=== PATIENT | male | born 1965 | race Caucasian/White ===

== ENCOUNTER 2020-10-24 11:39 | Emergency (ER) | payer BC, SELFPAY ==
[2020-10-24 11:47] VITALS: BP 155/105; PULSE 70; RESP 18; TEMP 36.6; O2SAT 96; BMI 37.5
[2020-10-24 12:06] VITALS: BP 159/98; PULSE 70; RESP 18; O2SAT 98
--- NOTE | 2020-10-24 12:12 | XRR_ITS ---
PROCEDURE INFORMATION: Exam: XR Pelvis Exam date and time: 10/24/2020 12:12 PM Age: 54 years old Clinical indication: Pelvic pain; Additional info: Evaluate for pain TECHNIQUE: Imaging protocol: XR pelvis. Views: 1 or 2 view. COMPARISON: No relevant prior studies available. FINDINGS: Bones/joints: Unremarkable. No acute fracture. Soft tissues: Unremarkable. XR/XR pelvis 1-2V* [id number] IMPRESSION: No acute findings.
--- NOTE | 2020-10-24 12:12 | XRR_ITS ---
PROCEDURE INFORMATION: Exam: XR Lumbosacral Spine Exam date and time: 10/24/2020 12:12 PM Age: 54 years old Clinical indication: Low back pain; Additional info: Evaluate for pathologies TECHNIQUE: Imaging protocol: XR of the lumbosacral spine. Views: 2 or 3 views. COMPARISON: No relevant prior studies available. FINDINGS: Bones/joints: No acute fracture. Normal alignment. Normal disc height. Soft tissues: Unremarkable. XR/XR lumbar spine 2-3V* [id number] IMPRESSION: No acute findings.
--- NOTE | 2020-10-24 12:12 | XRR_ITS ---
PROCEDURE INFORMATION: Exam: XR Left Femur Exam date and time: 10/24/2020 12:12 PM Age: 54 years old Clinical indication: Pain; Thigh; Left; Additional info: Evaluate for pain TECHNIQUE: Imaging protocol: XR Left femur. Views: 2 views. COMPARISON: No relevant prior studies available. FINDINGS: Bones/joints: Unremarkable. No acute fracture. Soft tissues: Unremarkable. XR/XR femur LT min 2V* [id number] IMPRESSION: No acute findings.
--- NOTE | 2020-10-24 12:15 | ED_ITS ---
HPI - General Adult General: Chief complaint: Back Pain/Injury Stated complaint: SEVERE LOWER BACK PAIN Time Seen by Provider: 10/24/20 11:54 History of Present Illness: HPI narrative: CC: Back pain HPI: [54]yo patient w/ hx of chronic L sided lumbar back pain presenting to the ED with acutely worsening chronic pain x 1 day. Pain started when patient woke up this morning that has been improving this morning. Patient first noticed the pain after he was weed eating 2 months ago. He requests for XRays so that he can follow up with his chiropracter on Sunday. Patient denied taking any medicine. Today, patients denies trauma to the back, fever/chill/IVDU, LE weakness, saddle anesthesia/bowel incontinence/bladder incontinence, or hx of recent weight loss or cancer. In addition, he does not have a history of kidney stone or urinary symptoms/hx of UTI. Onset: chronic, acutely worsening symptoms x1 day Duration: 60 days Location: Back pain with radiation to the L leg Severity: moderate Review of Systems Narrative: Constitutional: No fever, no chills. HEENT: No vision changes CV: No chest pain, no palpitations PULM: No cough, no dyspnea. GI: No abdominal pain, no N/V/D. : No dysuria MSKEL: No edema SKIN: No new rashes, no lesions. NEURO: No headache, no focal weakness. HEME: No visible bruises PSYCH: Normal mood BACK: L-sided lumbar paraspinal pain radiating to the L leg PFS ED PFSH: Medical History (Updated 10/24/20 @ 12:14 by Aurora Padgett MD) Depression Essential (primary) hypertension Surgical History Status post open reduction and internal fixation (ORIF) of fracture Right leg knee to ankle Family History Other Brain aneurysm Cancer Social History Smoking and tobacco status: former smoker Second hand smoke exposure: No Smoking risk assessment/counseling performed?: No Alcohol intake: never Desire information about alcohol rehabilitation?: No Counseling given: No Desire information about substance/drug rehabilitation?: No Counseling given: No Caregiver/support person: No Lives independently: Yes Household members: other Housing: House Marital status: Number of children: 0 Current occupational status: employed History of recent travel: No Current gender identity: Male Physical Exam Narrative: EXAM NARRATIVE: Head: Atraumatic Eyes: PERRL, conjunctiva without injection ENT: Mucous membrane moist NECK: Supple without lymphadenopathy LUNGS: CTA CV: RRR ABDOMEN: Soft, nontender EXTREMITY: Normal ROM, 5/5 strength in hip/knee/ankle f/e bilaterally, sensation intact bilaterally in the LE. SKIN: No rash or erythema NEURO: Awake and alert. No focal motor deficits. PSYCH: Normal mood and affect. : No saddle anesthesia BACK: No midline tenderness, no step off, obvious deformity, hip stable, L paraspinal lumbar tenderness with radiation to the L side Course Vital Signs: Vital signs: Vital Signs Temperature 97.8 F 10/24/20 11:47 Pulse Rate 60 10/24/20 14:09 Respiratory Rate 18 10/24/20 14:09 Blood Pressure 150/74 10/24/20 14:09 Pulse Oximetry 97 10/24/20 14:09 MDM - General Adult MDM Narrative: Medical decision making narrative: [54]yo patient w/ hx of chronic lumbar pain with radiation to the [L] side presenting to the ED with acute worsening lumbar pain x 1 day on waking up, now has mild pain with ambulation. Neurological exam including LE exam intact. The Patient is able to bear weight on legs and ambulate with moderate pain. No red flags of IVDU/fever, hx or symptomatology of cancer w/ mets to the bones, neurological findings or bowel or bladder incontinence, or acute trauma/fracture of the vertebral columns. XR pelvis, lumbar back, and L femur per request of patient [12:30] On reassessment, no signs of acute fracture. Patient declined pain medicine and Orthopedics followup. Patient elects to see his chiropracter on Sunday. At the present time, I have discussed the importance for the patient to follow up with orthopedics KEO and the patient agrees. No suspicion for acute cord compression at this time. Disposition: Discharge. Patient is given SRP for any focal weakness, intractable pain, fever/chill, any signs of bowel or bladder incontinence. Patient is instructed to follow up with the orthopedics provider. I have provided an additional orthopedic referral for the patient should the patient need it. Patient verbalizes understanding and plans to do so in the next fews. Imaging Data^: Other Imaging: Radiologist's impression: [address] [place], [place] [address]GDlp ReportSigned Patient: Theo Yousif #: [id number]: 1965Acct#:[id number]/Sex: 54 / MADM Date: 10/24/20Loc: ERRoom/Bed:Attending Dr: Ordering Provider/Ordering MD: Aurora Padgett MD Date of Service: 10/24/20 Procedure(s): XR pelvis 1-2V* [id number] Accession Number(s): [id number] Report Number: [id number] PROCEDURE INFORMATION: Exam: XR Pelvis Exam date and time: 10/24/2020 12:12 PM Age: 54 years old Clinical indication: Pelvic pain; Additional info: Evaluate for pain TECHNIQUE: Imaging protocol: XR pelvis. Views: 1 or 2 view. COMPARISON: No relevant prior studies available. FINDINGS: Bones/joints: Unremarkable. No acute fracture. Soft tissues: Unremarkable. XR/XR pelvis 1-2V* [id number] IMPRESSION: No acute findings. Dictated By:Mushtaq Henning MDSigned By:Mushtaq Henning MDSigned Date/Time:10/24/20 1353DD/ [address] [place], [place] [address]CJko ReportSigned Patient: Theo Yousif #: [id number]: 1965Acct#:[id number]/Sex: 54 / MADM Date: 10/24/20Loc: ERRoom/Bed:Attending Dr: Ordering Provider/Ordering MD: Aurora Padgett MD Date of Service: 10/24/20 Procedure(s): XR lumbar spine 2-3V* [id number] Accession Number(s): [id number] Report Number: [id number] PROCEDURE INFORMATION: Exam: XR Lumbosacral Spine Exam date and time: 10/24/2020 12:12 PM Age: 54 years old Clinical indication: Low back pain; Additional info: Evaluate for pathologies TECHNIQUE: Imaging protocol: XR of the lumbosacral spine. Views: 2 or 3 views. COMPARISON: No relevant prior studies available. FINDINGS: Bones/joints: No acute fracture. Normal alignment. Normal disc height. Soft tissues: Unremarkable. XR/XR lumbar spine 2-3V* [id number] IMPRESSION: No acute findings. Dictated By:Mushtaq Henning MDSigned By:Mushtaq Henningigned Date/Time:10/24/20 1353DD/ [address] [address]UArq ReportSigned Patient: Theo Yousif #: [id number]: 1965Acct#:[id number]/Sex: 54 / MADM Date: 10/24/20Loc: ERRoom/Bed:Attending Dr: Ordering Provider/Ordering MD: Aurora Padgett MD Date of Service: 10/24/20 Procedure(s): XR femur LT min 2V* [id number] Accession Number(s): [id number] Report Number: [id number] PROCEDURE INFORMATION: Exam: XR Left Femur Exam date and time: 10/24/2020 12:12 PM Age: 54 years old Clinical indication: Pain; Thigh; Left; Additional info: Evaluate for pain TECHNIQUE: Imaging protocol: XR Left femur. Views: 2 views. COMPARISON: No relevant prior studies available. FINDINGS: Bones/joints: Unremarkable. No acute fracture. Soft tissues: Unremarkable. XR/XR femur LT min 2V* [id number] IMPRESSION: No acute findings. Dictated By:Mushtaq Henning MDSigned By:Mushtaq Henningigned Date/Time:10/24/20 1353DD/ 1353 Discharge Plan Discharge Patient Disposition: Home Clinical Impression: Lumbago Condition: Stable Prescriptions: No Action aspirin 325 mg tablet 325 mg PO BID PRNRF: 0 fenofibrate nanocrystallized [Tricor] 145 mg tablet 145 mg PO DAILY Qty: 30 RF: 5 amlodipine 10 mg tablet 10 mg PO QDAY Qty: 30 RF: 5 Discharge Orders: Discharge ED (Routine); Ordered 10/24/20 Ordered By: Aurora Padgett Referrals: Zhane Butts FNP-C [Primary Care Provider] - Discharge Diet: Advance as tolerated Discharge Activity: Resume usual activity Patient Instructions: Back Pain (ED) Activity Restrictions/Additional Instructions: Please come back to the emergency room if you have any worsening pain, weakness in the legs, numbness in the legs, or difficulty controlling your bladder or hong wel. Coding Level of Care Code ED Project Management Specialist for [place]
[2020-10-24 14:09] VITALS: BP 150/74; PULSE 60; RESP 18; O2SAT 97
== END 2020-10-24 14:09 | disposition home or self-care (01) ==
PROVIDERS: Emergency Provider Emergency Medicine; PCP Nurse Practitioner Family
DX: M54.5 Low back pain (principal); I10 Essential (primary) hypertension; Z87.891 Personal history of nicotine dependence
CPT/HCPCS: 72100; 72170; 73552; 99282

== ENCOUNTER → 2020-11-16 13:16 | Outpatient (BNVA) | payer BC, SELFPAY | PROVIDERS: PCP Nurse Practitioner Family; Visit Provider Nurse Practitioner Family | DX: I10 Essential (primary) hypertension (principal); E78.2 Mixed hyperlipidemia; M79.89 Other specified soft tissue disorders; H53.9 Unspecified visual disturbance | CPT/HCPCS: 80053; 80061; 84443; 85025 ==

== ENCOUNTER → 2020-12-13 10:39 | Outpatient (BNVA) | payer BC, SELFPAY | PROVIDERS: PCP Nurse Practitioner Family | DX: Z20.822 Contact with and (suspected) exposure to COVID-19 (principal) | CPT/HCPCS: 87635 ==

== ENCOUNTER → 2021-09-13 09:38 | Outpatient (BNVA) | payer BC, SELFPAY | PROVIDERS: PCP Nurse Practitioner Family; Visit Provider Nurse Practitioner Family | DX: I10 Essential (primary) hypertension (principal); E78.2 Mixed hyperlipidemia | CPT/HCPCS: 80053; 80061; 84443; 85025 ==

== ENCOUNTER → 2022-06-14 15:37 | Outpatient (BNVA) | payer BC, MEDICAID, SELFPAY | PROVIDERS: Visit Provider Nurse Practitioner Family | DX: R30.0 Dysuria (principal); Z12.5 Encounter for screening for malignant neoplasm of prostate; E78.2 Mixed hyperlipidemia; I10 Essential (primary) hypertension; F31.9 Bipolar disorder, unspecified; F20.9 Schizophrenia, unspecified; E66.9 Obesity, unspecified | CPT/HCPCS: 80053; 80061; 80307; 84443; G0103 ==

== ENCOUNTER 2023-01-06 16:54 | Emergency (ER) | payer BC, MEDICAID, SELFPAY ==
[2023-01-06 16:55] VITALS: BP 206/132; PULSE 92; RESP 18; TEMP 37; O2SAT 95; BMI 30.4
--- NOTE | 2023-01-06 17:35 | ED.C_ITS ---
HPI - Psych General: Chief Complaint: Psychiatric Symptoms Stated Complaint: PSYCH EVAL Time Seen by Provider: 01/06/23 17:11 Source: patient Mode of arrival: EMS History of Present Illness: 57-year-old male presents to the emergency room. [place] there was some confrontation between him about his living conditions he is living in a camper on the property they do not want him in the house he wanted to get in the house to take a bath. Law enforcement was called. He is having some hallucinations he said he called the FBI. He also made comments about killing himself will stay EMS and see the affidavit and to myself as well when I did his history. Denies making any attempts to harm himself he states he is going to try to get someone else to kill him, alludes to having served in the . MD complaint: suicidal ideation Context: significant life stressor Associated psychiatric symptoms: depression, suicidal ideation and delusions If self harm: admits thoughts of self harm Review of Systems Const: Denies: fever(s) or chills Card: Denies: chest pain Resp: Denies: dyspnea GI: Denies: abdominal pain : Denies: dysuria, urinary frequency or urinary urgency Musc: Denies: neck pain or back pain Skin/Breast: Denies: rash PFSH ED PFSH: Medical History Bipolar disorder Depression Essential (primary) hypertension Schizophrenia Surgical History Status post open reduction and internal fixation (ORIF) of fracture Right leg knee to ankle Family History Other Brain aneurysm Cancer Social History Smoking and tobacco/nicotine status: former use of tobacco/nicotine Second hand smoke exposure: No Alcohol intake: never Substance/Drug Use: never Caregiver/support person: No Lives independently: Yes Household members: other Housing: House Marital status: Number of children: 0 Current occupational status: employed Do you think of yourself as: Straight/Heterosexual Current gender identity: Male Physical Exam Const: COMMON NORMALS: no acute distress GENERAL APPEARANCE: cooperative and comfortable ORIENTATION/CONSCIOUSNESS: Yes awake, Yes oriented to person, Yes oriented to place and Yes oriented to time HENMT: COMMON NORMALS: normocephalic, atraumatic and hearing grossly normal bilaterally HEAD & SCALP: normocephalic and atraumatic Resp: COMMON NORMALS: normal respiratory effort, No retractions, No use of accessory muscles and clear to auscultation bilaterally AUSCULTATION: clear to auscultation bilaterally Cardio: COMMON NORMALS: regular rate, regular rhythm and No murmurs present (Cardio) RATE: regular rate RHYTHM: regular rhythm GI: COMMON NORMALS: Soft to palpation and No hepatosplenomegaly present AUSCULTATION: Yes normoactive bowel sounds PALPATION: Yes Soft to palpation, No Tenderness to palpation present (GI), No Guarding due to palpation present (GI) and Yes No hepatosplenomegaly present Extremity: COMMON NORMALS: normal to inspection, capillary refill normal, no clubbing, cyanosis or edema, no calf tenderness and no pedal edema Neuro: SENSORIUM/ORIENTATION: Yes oriented to person, Yes oriented to place and Yes oriented to time Skin: COMMON NORMALS: no rashes or lesions noted GENERAL SKIN EXAM: no rashes or lesions noted Course Vital Signs: Vital signs: Vital Signs Temperature 98.6 F 01/06/23 16:55 Pulse Rate 63 01/07/23 03:39 Respiratory Rate 16 01/07/23 03:39 Blood Pressure 152/100 01/07/23 03:39 Pulse Oximetry 98 01/07/23 03:39 Oxygen Delivery Me thod Room Air 01/06/23 21:51 MDM - Psych Medical Decision Making Patient 96 4-hour hold with acute psychosis delusions hallucinations and suicidal ideation. They have excepted at [facility] will transfer via ambulance Medical Records I reviewed the patient's medical records. Lab Data I reviewed the patient's lab results. 01/06/23 17:35 01/06/23 17:35 Laboratory Results WBC 7.66 10^3/uL (3.29-11.43) 01/06/23 17:35 RBC 5.25 10^6/uL (3.85-5.65) 01/06/23 17:35 Hgb 15.40 g/dL (11.27-16.99) 01/06/23 17:35 Hct 45.6 % (37-53) 01/06/23 17:35 MCV 86.9 fl (82-101) 01/06/23 17:35 MCH 29.3 pg (27-33) 01/06/23 17:35 MCHC 33.8 g/dL (30-55) 01/06/23 17:35 RDW 12.3 % (12.1-15.1) 01/06/23 17:35 Plt Count 207 10^3/cmm (157-399) 01/06/23 17:35 MPV 9.7 fL (7.4-10.4) 01/06/23 17:35 Neut % (Auto) 60.0 % 01/06/23 17:35 Lymph % (Auto) 30.7 % 01/06/23 17:35 [place] % (Auto) 7.8 % 01/06/23 17:35 Eos % (Auto) 0.5 % 01/06/23 17:35 Baso % (Auto) 0.7 % 01/06/23 17:35 Neut # (Auto) 4.60 10^3/uL (1.8-7.7) 01/06/23 17:35 Lymph # (Auto) 2.4 10^3/uL (0.8-4.8) 01/06/23 17:35 [place] # (Auto) 0.6 10^3/uL (0.2-0.9) 01/06/23 17:35 Eos # (Auto) 0.0 10^3/uL (0.0-0.8) 01/06/23 17:35 Baso # (Auto) 0.1 10^3/uL (0.0-0.1) 01/06/23 17:35 Nucleated RBC % (auto) 0 % 01/06/23 17:35 Nucleated RBCs # 0.0 /100WBC 01/06/23 17:35 Sodium 140 mmol/L (136-145) 01/06/23 17:35 Potassium 4.3 mmol/L (3.5-5.1) 01/06/23 17:35 Chloride 104 mmol/L (98-107) 01/06/23 17:35 Carbon Dioxide 24 mmol/L (22-29) 01/06/23 17:35 Anion Gap 16.3 (5-19) 01/06/23 17:35 BUN 14 mg/dL (6-20) 01/06/23 17:35 Creatinine 1.1 mg/dL (0.7-1.2) 01/06/23 17:35 GFR Calculation 69.5 mL/min (90-130) L 01/06/23 17:35 Glucose 103 mg/dL (65-115) 01/06/23 17:35 Calculated Osmolality 291 mOsm/kg (285-295) 01/06/23 17:35 Calcium 10.1 mg/dL (8.5-10.5) 01/06/23 17:35 Total Bilirubin 0.5 mg/dL (0.15-1.2) 01/06/23 17:35 AST 21 U/L (0-40) 01/06/23 17:35 ALT 20 U/L (0-41) 01/06/23 17:35 Alkaline Phosphatase 55 U/L (40-130) 01/06/23 17:35 Total Protein 7.6 g/dL (6.6-8.7) 01/06/23 17:35 Albumin 4.8 g/dL (3.5-5.2) 01/06/23 17:35 Globulin 2.8 g/dL (1.3-4.6) 01/06/23 17:35 Urine Color Yellow (Yellow) 01/06/23 17:42 Urine Appearance Clear (CLEAR) 01/06/23 17:42 Urine pH 5 (5-7) 01/06/23 17:42 Ur Specific [place] 1.020 (1.005-1.030) 01/06/23 17:42 Urine Protein 2+ (Negative) H 01/06/23 17:42 Urine Glucose (UA) Norm (Normal) 01/06/23 17:42 Urine Ketones 1+ (Negative) H 01/06/23 17:42 Urine Blood 2+ (Negative) H 01/06/23 17:42 Urine Nitrate Negative (Negative) 01/06/23 17:42 Urine Bilirubin Neg (Negative) 01/06/23 17:42 Urine Urobilinogen Neg mg/dL (Negative) 01/06/23 17:42 Ur Leukocyte Esterase Negative (Negative) 01/06/23 17:42 Urine RBC 0-4 /hpf (0-2) H 01/06/23 17:42 Urine WBC 0-4 /hpf (0-5) H 01/06/23 17:42 Ur Squamous Epith Cells 0-4 /hpf (0-5) H 01/06/23 17:42 Amorphous Sediment 2+ /hpf 01/06/23 17:42 Urine Bacteria None /hpf (NONE) 01/06/23 17:42 Hyaline Casts 5-10 /lpf H 01/06/23 17:42 Fine Granular Casts 0-4 /lpf H 01/06/23 17:42 Urine Mucus 2+ /hpf 01/06/23 17:42 Salicylates < 0.3 mg/dL (3-10) L 01/06/23 17:35 Urine Opiates Screen Negative ng/mL (Negative) 01/06/23 17:42 Acetaminophen < 5.0 ug/mL (10-30) L 01/06/23 17:35 Ur Barbiturates Screen Negative ng/mL (Negative) 01/06/23 17:42 Ur Phencyclidine Scrn Negative ng/mL (Negative) 01/06/23 17:42 Ur Amphetamines Screen Negative ng/mL (Negative) 01/06/23 17:42 U Benzodiazepines Scrn Negative ng/mL (Negative) 01/06/23 17:42 Urine Cocaine Screen Negative ng/mL (Negative) 01/06/23 17:42 U Marijuana (THC) Screen Positive ng/mL (Negative) H 01/06/23 17:42 Ethyl Alcohol < 10 mg/dL (0-10) 01/06/23 17:35 SARS-CoV-2 Ag (Rapid) negative (Negative) 01/06/23 18:55 No radiology studies performed this visit Discharge Plan Discharge Patient Disposition: Xfer Psychiatric Hosp Clinical Impression: Suicidal ideation, Acute psychosis Condition: Stable Prescriptions: No Action aspirin 325 mg tablet 325 mg PO BID PRN (Reason: Pain) fenofibrate nanocrystallized [Tricor] 145 mg tablet 145 mg PO DAILY Qty: 30 5RF losartan 50 mg tablet 50 mg PO BID 30 Days Qty: 60 5RF clonidine HCl 0.1 mg tablet See Rx Instructions .ROUTE .COMPLEX Qty: 90 0RF Dose Instruction: TAKE ONE TABLET BY MOUTH THREE TIMES DAILY NEEDED FOR HYPERTENSIVE EMERGENCY Rx Instructions: TAKE ONE TABLET BY MOUTH THREE TIMES DAILY NEEDED FOR HYPERTENSIVE EMERGENCY Coding Level of Care Code ED Transformation Specialist for Chg Fwd
[2023-01-06 17:49] LABS: Basophils # 0.1 10^3/uL (0.0-0.1); Basophils % 0.7 %; Eosinophils % 0.5 %; Hematocrit 45.6 % (37-53); Lymphocytes # 2.4 10^3/uL (0.8-4.8); Lymphocytes % 30.7 %; Mean Corpuscular HGB Conc 33.8 g/dL (30-55); Mean Corpuscular Hemoglobin 29.3 pg (27-33); Mean Corpuscular Volume 86.9 fl (82-101); Mean Platelet Volume 9.7 fL (7.4-10.4); Monocytes # 0.6 10^3/uL (0.2-0.9); Monocytes % 7.8 %; Nucleated Red Blood Cells % 0 %; Platelet Count 207 10^3/cmm (157-399); Red Blood Count 5.25 10^6/uL (3.85-5.65); Red Cell Distribution Width 12.3 % (12.1-15.1); White Blood Count 7.66 10^3/uL (3.29-11.43)
[2023-01-06 18:07] LABS: Alanine Aminotransferase 20 U/L (0-41); Albumin Level 4.8 g/dL (3.5-5.2); Alkaline Phosphatase 55 U/L (40-130); Anion Gap 16.3 (5-19); Aspartate Amino Transferase 21 U/L (0-40); Blood Urea Nitrogen 14 mg/dL (6-20); Calcium 10.1 mg/dL (8.5-10.5); Carbon Dioxide 24 mmol/L (22-29); Chloride 104 mmol/L (98-107); Globulin 2.8 g/dL (1.3-4.6); Glomerular Filtration Rate 69.5 mL/min (90-130); Glucose 103 mg/dL (65-115); Osmolality Calculated 291 mOsm/kg (285-295); Potassium 4.3 mmol/L (3.5-5.1); Sodium 140 mmol/L (136-145); Total Bilirubin 0.5 mg/dL (0.15-1.2); Total Protein 7.6 g/dL (6.6-8.7)
[2023-01-06 18:08] LABS: Acetaminophen < 5.0 ug/mL (10-30); Alcohol Level < 10 mg/dL (0-10); Salicylate < 0.3 mg/dL (3-10)
[2023-01-06 18:22] LABS: Amphetamines Screen Urine Negative (Negative); Barbiturates Screen Urine Negative (Negative); Benzodiazepines Screen Urine Negative (Negative); Cocaine Screen Urine Negative (Negative); Opiate Screen Urine Negative (Negative); PCP Screen Urine Negative (Negative); THC Screen Urine Positive (Negative)
[2023-01-06 18:32] LABS: Urine Appearance Clear (CLEAR); Urine Color Yellow (Yellow)
[2023-01-06 18:33] LABS: Add Urine Culture? No; Add Urine Microscopic? YES; Amorphous Sediment Urine 2+ /hpf; Bilirubin Urine Neg (Negative); Blood Urine 2+ (Negative); Fine Granular Casts Urine 0-4 /lpf; Glucose Urine UA Norm (Normal); Ketones Urine 1+ (Negative); Leukocyte Esterase Urine Negative (Negative); Mucus Urine 2+ /hpf; Nitrate Urine Negative (Negative); Protein Urine 2+ (Negative); RBC Urine 0-4 /hpf (0-2); Squamous Epithelial Cell Urine 0-4 /hpf (0-5); Urobilinogen Urine Neg (Negative); WBC Urine 0-4 /hpf (0-5); pH Urine 5 (5-7)
[2023-01-06 19:29] LABS: SARS Covid-2 Antigen negative (Negative)
[2023-01-06 21:51] VITALS: BP 192/106; PULSE 57; RESP 16; O2SAT 98
[2023-01-07 03:39] VITALS: BP 152/100; PULSE 63; RESP 16; O2SAT 98
--- NOTE | 2023-01-07 06:51 | PC.NURSE ---
report rec'd from FELIZ Veliz
[2023-01-07 08:35] VITALS: BP 148/85
[2023-01-07] MEDS: losartan 50 mg Tablet PO (08:35)
[2023-01-07] MEDS: nicotine 2 mg Gum 4 MG BUCCAL (12:05)
== END 2023-01-07 13:54 ==
PROVIDERS: Emergency Provider Family Medicine
DX: R45.851 Suicidal ideations (principal); F23 Brief psychotic disorder; Z11.52 Encounter for screening for COVID-19; Z87.891 Personal history of nicotine dependence; I10 Essential (primary) hypertension
CPT/HCPCS: 36415; 80053; 80306; 80307; 81001; 85025; 87426; 99283

== ENCOUNTER → 2023-04-16 14:51 | Outpatient (BNVA) | payer BC, MEDICAID, SELFPAY | PROVIDERS: PCP Family Medicine; Visit Provider Family Medicine | DX: R30.0 Dysuria (principal); I10 Essential (primary) hypertension; N41.1 Chronic prostatitis; Z79.899 Other long term (current) drug therapy | CPT/HCPCS: 80053; 80061; 81000; 82043; 85025 ==

== ENCOUNTER 2023-08-06 13:25 | Emergency (ER) | payer BC, MEDICAID, SELFPAY ==
[2023-08-06] VITALS (9 sets, daily range): BP systolic 169–183; BP diastolic 81–122; PULSE 55–64; RESP 18; TEMP 36.8; O2SAT 98–99
--- NOTE | 2023-08-06 13:27 | XR_ITS ---
WS: [id number] XR chest 1V portable [id number] REASON FOR EXAM: chest pain FINDINGS: Mild tortuosity of the thoracic aorta. Heart size at the upper limits of normal. Calcified granulomatous disease in both hemithoraces. No acute pulmonary parenchymal or pleural abnormality noted. Bony thorax is intact without significant focal abnormality. XR/XR chest 1V portable [id number] IMPRESSION: No acute chest abnormality.
--- NOTE | 2023-08-06 13:36 | ECG_ITS ---
[facility] Test Date: 2023-08-06 Pat Name: Abdirahman Yousif Department: Room: Gender: Male Operations Asst: : 1965 Requested By: Tobias Brooks Order Number: [id number] Luis MD: Aba Harrell M.D. Measurements Intervals [place] Rate: 60 P: 51 WA: 162 QRS: 42 QRSD: 92 T: 47 QT: 391 QTc: 391 Interpretive Statements SINUS RHYTHM NONSPECIFIC ST ELEVATION [0.05+ mV ST ELEVATION] No previous ECG available for comparison Electronically Signed On 08-06-2023 14:31:19 CDT by Aba Harrell M.D. [email or web address]
--- NOTE | 2023-08-06 13:51 | ED_ITS ---
HPI - Chest Pain 2 General: Chief Complaint: Arrhythmia/Palpitations Stated Complaint: chest pain Time Seen by Provider: 08/06/23 13:27 Source: patient Mode of arrival: ambulatory History of Present Illness: 57-year-old male presents to the emergen cy room with complaints of not feeling well. He states he is having 1 of those attacks he says he gets hand and foot cramps he feels very short of breath he gets numbness and tingling in his face. He also gets diaphoretic with this. It is resolved by the time he arrived here. He was at the clinic and he states that his heart rate was high and he was directed here by ambulance. No documentation of an EKG. When he arrived here his heart rate is actually bradycardic in the 60s. No chest pain or shortness of breath at this time although patient states he is very cold part of his because his T-shirt is completely soaked. He has no known history of coronary artery disease MD complaint: chest pain Onset (ago): minute(s) Timing of current episode: episodic Onset: during rest Relieving factors: nothing Exacerbating factors: nothing Associated symptoms: Deny abdominal pain, diaphoresis, dyspnea, fever(s), leg edema, nausea, palpitations, sense of impending doom, syncope or vomiting Treatment prior to arrival: none Review of Systems 2 Const: Denies: fever(s), chills or diaphoresis Card: Denies: chest pain, palpitations or syncope Resp: Denies: dyspnea GI: Denies: abdominal pain, nausea or vomiting : Denies: dysuria, urinary frequency or urinary urgency Musc: Denies: neck pain or back pain Skin/Breast: Denies: rash PFSH ED 2 PFSH: Medical History Prostate cancer screening Bipolar disorder Schizophrenia Depression Essential (primary) hypertension Surgical History Status post open reduction and internal fixation (ORIF) of fracture Right leg knee to ankle Family History Other Brain aneurysm Cancer Social History Smoking and tobacco/nicotine status: former use of tobacco/nicotine Second hand smoke exposure: No Alcohol intake: never Substance/Drug Use: never Caregiver/support person: No Lives independently: Yes Household members: other Housing: House Marital status: Number of children: 0 Current occupational status: employed Do you think of yourself as: Straight/Heterosexual Current gender identity: Male Physical Exam 2 Const: COMMON NORMALS: no acute distress GENERAL APPEARANCE: cooperative and comfortable ORIENTATION/CONSCIOUSNESS: Yes awake, Yes oriented to person, Yes oriented to place and Yes oriented to time HENMT: COMMON NORMALS: normocephalic, atraumatic and hearing grossly normal bilaterally HEAD & SCALP: normocephalic and atraumatic Resp: COMMON NORMALS: normal respiratory effort, No retractions, No use of accessory muscles and clear to auscultation bilaterally AUSCULTATION: clear to auscultation bilaterally Cardio: COMMON NORMALS: regular rate, regular rhythm and No murmurs present (Cardio) RATE: regular rate RHYTHM: regular rhythm GI: COMMON NORMALS: Soft to palpation and No hepatosplenomegaly present A USCULTATION: Yes normoactive bowel sounds PALPATION: Yes Soft to palpation, No Tenderness to palpation present (GI), No Guarding due to palpation present (GI) and Yes No hepatosplenomegaly present Extremity: COMMON NORMALS: normal to inspection, capillary refill normal, no clubbing, cyanosis or edema, no calf tenderness and no pedal edema Neuro: SENSORIUM/ORIENTATION: Yes oriented to person, Yes oriented to place and Yes oriented to time Skin: COMMON NORMALS: no rashes or lesions noted GENERAL SKIN EXAM: no rashes or lesions noted Course 2 Vital Signs: Vital signs: Vital Signs Temperature 98.2 F 08/06/23 13:59 Pulse Rate 62 08/06/23 18:24 Respiratory Rate 18 08/06/23 13:59 Blood Pressure 181/89 08/06/23 18:00 Pulse Oximetry 99 08/06/23 18:24 Oxygen Delivery Me thod Room Air 08/06/23 18:00 MDM - Chest Pain Medical Decision Making No arrhythmias here. Troponins trending negative. Blood pressure is mildly elevated. Continue his current medications. Will set him up for a 48-hour Holter monitor Lexiscan sestamibi stress test and follow-up with his primary care doctor to reevaluate blood pressure for possible adjustments. Medical Records I reviewed the patient's medical records. Lab Data I reviewed the patient's lab results. 08/06/23 14:08 08/06/23 14:08 Radiology Impressions Chest X-Ray 08/06/23 13:27 IMPRESSION: No acute chest abnormality. Laboratory Results WBC 5.91 10^3/uL (3.29-11.43) 08/06/23 14:08 RBC 5.32 10^6/uL (3.85-5.65) 08/06/23 14:08 Hgb 15.80 g/dL (11.27-16.99) 08/06/23 14:08 Hct 46.7 % (37-53) 08/06/23 14:08 MCV 87.8 fl (82-101) 08/06/23 14:08 MCH 29.7 pg (27-33) 08/06/23 14:08 MCHC 33.8 g/dL (30-55) 08/06/23 14:08 RDW 12.8 % (12.1-15.1) 08/06/23 14:08 Plt Count 203 10^3/cmm (157-399) 08/06/23 14:08 MPV 10.1 fL (7.4-10.4) 08/06/23 14:08 Neut % (Auto) 69.9 % 08/06/23 14:08 Lymph % (Auto) 22.0 % 08/06/23 14:08 [place] % (Auto) 6.6 % 08/06/23 14:08 Eos % (Auto) 0.3 % 08/06/23 14:08 Baso % (Auto) 0.7 % 08/06/23 14:08 Neut # (Auto) 4.13 10^3/uL (1.8-7.7) 08/06/23 14:08 Lymph # (Auto) 1.3 10^3/uL (0.8-4.8) 08/06/23 14:08 [place] # (Auto) 0.4 10^3/uL (0.2-0.9) 08/06/23 14:08 Eos # (Auto) 0.0 10^3/uL (0.0-0.8) 08/06/23 14:08 Baso # (Auto) 0.0 10^3/uL (0.0-0.1) 08/06/23 14:08 Nucleated RBC % (auto) 0 % 08/06/23 14:08 Nucleated RBCs # 0.0 /100WBC 08/06/23 14:08 Sodium 136 mmol/L (136-145) 08/06/23 14:08 Potassium 4.8 mmol/L (3.5-5.1) 08/06/23 14:08 Chloride 100 mmol/L (98-107) 08/06/23 14:08 Carbon Dioxide 24 mmol/L (22-29) 08/06/23 14:08 Anion Gap 16.8 (5-19) 08/06/23 14:08 BUN 17 mg/dL (6-20) 08/06/23 14:08 Creatinine 1.1 mg/dL (0.7-1.2) 08/06/23 14:08 GFR Calculation 69.5 mL/min (90-130) L 08/06/23 14:08 Glucose 121 mg/dL (65-115) H 08/06/23 14:08 Calculated Osmolality 285 mOsm/kg (285-295) 08/06/23 14:08 Calcium 9.7 mg/dL (8.5-10.5) 08/06/23 14:08 Total Bilirubin 0.2 mg/dL (0.15-1.2) 08/06/23 14:08 AST 21 U/L (0-40) 08/06/23 14:08 ALT 26 U/L (0-41) 08/06/23 14:08 Alkaline Phosphatase 50 U/L (40-130) 08/06/23 14:08 Troponin T Baseline 7 ng/L (0-15) 08/06/23 14:08 Troponin T 120 Minute 6.88 ng/L (0-15) 08/06/23 16:41 Delta Troponin T -0.12 ABS# (0-10) L 08/06/23 16:41 Total Protein 8.3 g/dL (6.6-8.7) 08/06/23 14:08 Albumin 5.1 g/dL (3.5-5.2) 08/06/23 14:08 Globulin 3.2 g/dL (1.3-4.6) 08/06/23 14:08 All radiology interpretation(s) finalized by discharge Discharge Plan Discharge Patient Disposition: Home Clinical Impression: Palpitations, Essential (primary) hypertension Condition: Stable Prescriptions: New amlodipine 5 mg tablet 5 mg PO DAILY Qty: 30 0RF No Action aspirin 81 mg tablet,delayed release (DR/EC) 81 mg PO DAILY Qty: 100 3RF clonidine HCl 0.1 mg tablet See Rx Instructions .ROUTE .COMPLEX Qty: 90 1RF Dose Instruction: TAKE ONE TABLET BY MOUTH THREE TIMES DAILY NEEDED FOR HYPERTENSIVE EMERGENCY Rx Instructions: TAKE ONE TABLET BY MOUTH THREE TIMES DAILY NEEDED FOR HYPERTENSIVE EMERGENCY fenofibrate nanocrystallized [Tricor] 145 mg tablet 145 mg PO DAILY Qty: 30 5RF losartan 50 mg tablet 50 mg PO BID 30 Days Qty: 60 5RF Discharge Orders: Discharge ED (Routine); Ordered 08/06/23 Ordered By: Tobias Quiroga Referrals: Simona Benavides DO [Primary Care Provider] - Discharge Diet: Usual diet Discharge Activity: Resume usual activity Patient Instructions: Opioid Safety, Pain Management Activity Restrictions/Additional Instructions: Thank you for choosing [facility] for your healthcare needs today. It is very important that you follow up as instructed or that you return to the Emergency Department should you have concerns or if your condition changes or worsens in any way. You were seen today after an episode of rapid heart rate. Your heart rate was normal and at times slightly slow in the emergency room but your blood pressure was significantly elevated. Will set you up for a 48-hour Holter monitor and a outpatient stress test. You should follow-up with your primary care doctor within the week to reevaluate your blood pressure. Coding Level of Care Code ED Senior Designer for [place] Russell
[2023-08-06] MEDS: aspirin 81 mg Chew Tablet 324 MG PO (14:13)
[2023-08-06 14:25] LABS: Basophils % 0.7 %; Eosinophils % 0.3 %; Hematocrit 46.7 % (37-53); Lymphocytes # 1.3 10^3/uL (0.8-4.8); Mean Corpuscular HGB Conc 33.8 g/dL (30-55); Mean Corpuscular Hemoglobin 29.7 pg (27-33); Mean Corpuscular Volume 87.8 fl (82-101); Mean Platelet Volume 10.1 fL (7.4-10.4); Monocytes # 0.4 10^3/uL (0.2-0.9); Monocytes % 6.6 %; Neutrophils # 4.13 10^3/uL (1.8-7.7); Neutrophils % 69.9 %; Nucleated Red Blood Cells % 0 %; Platelet Count 203 10^3/cmm (157-399); Red Blood Count 5.32 10^6/uL (3.85-5.65); Red Cell Distribution Width 12.8 % (12.1-15.1); White Blood Count 5.91 10^3/uL (3.29-11.43)
[2023-08-06 14:39] LABS: Alanine Aminotransferase 26 U/L (0-41); Albumin Level 5.1 g/dL (3.5-5.2); Alkaline Phosphatase 50 U/L (40-130); Anion Gap 16.8 (5-19); Aspartate Amino Transferase 21 U/L (0-40); Blood Urea Nitrogen 17 mg/dL (6-20); Calcium 9.7 mg/dL (8.5-10.5); Carbon Dioxide 24 mmol/L (22-29); Chloride 100 mmol/L (98-107); Globulin 3.2 g/dL (1.3-4.6); Glomerular Filtration Rate 69.5 mL/min (90-130); Glucose 121 mg/dL (65-115); Osmolality Calculated 285 mOsm/kg (285-295); Potassium 4.8 mmol/L (3.5-5.1); Sodium 136 mmol/L (136-145); Total Bilirubin 0.2 mg/dL (0.15-1.2); Total Protein 8.3 g/dL (6.6-8.7)
[2023-08-06 14:41] LABS: Troponin(5th) Baseline 7 ng/L (0-15)
[2023-08-06] MEDS: hyDRALAzine 20 mg/mL INJ 1 mL 10 MG IVP (15:39)
--- NOTE | 2023-08-06 16:32 | ECG_ITS ---
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 Measurements Intervals [place] Rate: 58 P: 32 UT: 164 QRS: 43 QRSD: 89 T: 44 QT: 389 QTc: 384 Interpretive Statements SINUS BRADYCARDIA Compared to ECG 08/06/2023 13:36:52 Sinus rhythm no longer present ST (T wave) deviation no longer present Electronically Signed On 08-07-2023 7:32:38 CDT by Javi Robison M.D. [id number]
[2023-08-06 17:20] LABS: Troponin 5 2HR 6.88 ng/L (0-15)
[2023-08-06 17:23] LABS: Troponin 5 2HR Delta -0.12 ABS# (0-10)
--- NOTE | 2023-08-08 08:32 | DCPLANNER ---
Message sent to cardiology for 48 hour holter monitor.
== END 2023-08-06 18:25 | disposition home or self-care (01) ==
PROVIDERS: Emergency Provider Family Medicine; PCP Family Medicine
DX: R00.2 Palpitations (principal); I10 Essential (primary) hypertension; Z79.82 Long term (current) use of aspirin; Z87.891 Personal history of nicotine dependence
CPT/HCPCS: 36415; 71045; 80053; 84484; 85025; 93005; 96374; 99285; J0360

== ENCOUNTER → 2023-08-24 14:21 | Outpatient (BNVA) | payer BC, MEDICAID, SELFPAY | PROVIDERS: PCP Family Medicine; Visit Provider Family Medicine | DX: I10 Essential (primary) hypertension (principal) | CPT/HCPCS: 84443 ==

== ENCOUNTER → 2023-11-21 09:23 | Outpatient (BNVA) | payer BC, MEDICAID, SELFPAY | PROVIDERS: PCP Family Medicine | DX: E78.2 Mixed hyperlipidemia (principal) | CPT/HCPCS: 80053; 80061; 85025 ==

== ENCOUNTER 2024-01-07 11:43 | Outpatient (CLI) | payer BC, MEDICAID, SELFPAY ==
--- NOTE | 2024-01-07 | ECG_ITS ---
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 Interpretive Statements EXERCISE STRESS TEST EXERCISE DATA: The patient was exercised by Willie protocol. Baseline heart rate was 72 beats per minute. Baseline blood pressure was 146/88 millimeters of mercury. Maximal predicted heart rate was 164 beats per minute. Maximum heart rate achieved was 141, which was 85% of the maximum predicted heart rate. Maximum blood pressure was 196/116millimeters of mercury. Total exercise time was 5 minutes and 1 seconds. Maximum METs achieved was 7.0. The reason for ending the test was completion of protocol. The patient complained of shortness of breath during the stress test, which then resolved at the end of the test. ELECTROCARDIOGRAM: BASELINE: Showed sinus rhythm, normal axis, no significant ST-T changes at the baseline noted. [] EXERCISE: At the peak exercise level, [] No significant ST-T changes suggestive of ischemia noted. [] RECOVERY: During the recovery period, heart rate dropped appropriately. No significant ST-T changes in the recovery suggestive of ischemia noted. [] CONCLUSION: 1. Exercise capacity is fair 2. Heart rate response was appropriate 3. Blood pressure response was appropriate 4. Symptoms not suggestive of ischemia. 5. Stress test is negative for ischemia. Electronically Signed On 02-06-2024 19:20:24 CNA PER DIEM by Javi Robison M.D. [id number]
[2024-01-07 11:54] VITALS: BMI 35.9
[2024-01-07 12:21] VITALS: BP 184/90; PULSE 96
== END 2024-01-07 11:44 | disposition home or self-care (01) ==
PROVIDERS: PCP Family Medicine
DX: R00.2 Palpitations (principal); I10 Essential (primary) hypertension; R06.02 Shortness of breath
CPT/HCPCS: 93017

== ENCOUNTER 2025-01-13 09:13 | Outpatient (CLI) | payer BC, MEDICAID, SELFPAY ==
--- NOTE | 2025-01-13 09:21 | USCV_ITS ---
Abdirahman Yousif Age: 59 Gender: M : 1965 Exam Date: 01/13/2025 09:39 Ordering Phys: Chhaya Garcia PAPER TUBE CUTTER PAPER TUBE CUTTER Technologist: IRVIN Exam Location: [facility] [place] Indication: Chest Discomfort BP: 126 / 70 HR: 52 Rhythm: Sinus Technical Quality: Adequate MEASUREMENTS (Male / Female) Normal Values 2D ECHO LV Diastolic Diameter PLAX 5.8 cm 4.2 - 5.9 / 3.9 - 5.3 cm IVS Diastolic Thickness 0.9 cm 0.6 - 1.0 / 0.6 - 0.9 cm IVS Systolic Thickness 0.9 cm LVPW Diastolic Thickness 0.9 cm 0.6 - 1.0 / 0.6 - 0.9 cm LVPW Systolic Thickness 1.0 cm LVOT Diameter 2.0 cm LV Ejection Fraction 2D Teich 11.2 % LV Ejection Fraction MOD 4C 65.4 % LV Ejection Fraction MOD 2C 42.2 % LV Ejection Fraction 2C AL 41.9 % LA Diameter 3.0 cm RA Systolic Volume 4C AL 28.1 ml RA Systolic Volume 4C MOD 26.9 ml LA Sys Volume AL 47.5 cm cubed LA Sys Volume Index AL 20.6 cm cubed/m squared Aorta at Sinotubular Diameter 2.2 cm IVC Diameter 1.9 cm M-MODE LA Ao Ratio MM 1.8 AV Cusp Separation MM 1.8 cm DOPPLER AV Peak Velocity 166.0 cm/s LVOT Peak Velocity 97.0 cm/s AV Area Cont Eq vti 2.1 cm squared AV Area Cont Eq pk 1.9 cm squared MV Peak Velocity 111.0 cm/s MV Area PHT 3.7 cm squared Mitral E to A Ratio 1.1 TR Peak Velocity 95.0 cm/s TR Peak Gradient 3.6 mmHg TV Peak E Velocity 82.0 cm/s PV Peak Velocity 107.0 cm/s FINDINGS Left Ventricle Normal left ventricular size, systolic function and wall thickness with no regional wall motion abnormality. Left ventricular ejection fraction is 65%. Normal left ventricular diastolic function. Right Ventricle Normal right ventricular size and systolic function. Right Atrium Normal right atrial size. Left Atrium Normal left atrial size. IA Septum Normal appearance of the interatrial septum. Mitral Valve Normal mitral valve structure. No mitral valve stenosis or regurgitation. Aortic Valve Normal aortic valve structure. No aortic valve stenosis or regurgitation. Tricuspid Valve Normal tricuspid valve structure. No tricuspid valve stenosis or regurgitation. Normal pulmonary pressure. Pulmonic Valve Normal pulmonic valve structure. No pulmonic valve stenosis or regurgitation. Pericardium No pericardial effusion. Aorta Normal diameter of the aortic root and ascending thoracic aorta. IVC Normal IVC diameter. CONCLUSIONS Normal left ventricular size, systolic function and wall thickness with ejection fraction of 65%. Normal right ventricular size and systolic function. No significant valvular abnormalities. Lai Davis MD, FACC (Electronically Signed) Final Date: 14 January 2025 18:55 S
== END 2025-01-13 09:14 | disposition home or self-care (01) ==
LOC: RAD 09:16
PROVIDERS: PCP Nurse Practitioner Family; Visit Provider Nurse Practitioner Family
DX: R07.89 Other chest pain (principal)
CPT/HCPCS: 93306